=== PATIENT | male | born 1990 | race Caucasian/White ===

== ENCOUNTER 2017-08-14 14:52 | Emergency (ER) | payer SELFPAY ==
[2017-08-14 14:57] VITALS: BP 137/79; PULSE 79; TEMP 97.4; BMI 25.0
--- NOTE | 2017-08-14 14:57 | PDOC ---
Rapid Medical Evaluation Time Seen by Provider: 08/14/17 14:54 Medical Evaluation: Allergies Allergy/AdvReac Type Severity Reaction Status Date / Time morphine Allergy Itching Verified 03/01/15 12:58 08/14/17 14:55 I have performed a brief in-person evaluation of this patient. The patient presents with a chief complaint of: few days of "gum pain", "was supposed to get a wisdom tooth out but I don't have a dentist", pain to R upper molar Pertinent physical exam findings: no abscess appreciated I have ordered the following: nothing The patient will proceed to the ED for further evaluation. Discharge Disposition - Diagnosis Dental implant pain - Referrals - Patient Instructions - Post Discharge Activity
--- NOTE | 2017-08-14 15:46 | PDOC ---
History of Present Illness - General Chief Complaint: Toothache Stated Complaint: TOOTHACHE, HEADACHE Time Seen by Provider: 08/14/17 14:54 History Source: Patient Exam Limitations: No Limitations - History of Present Illness Initial Comments: 08/14/17 15:42 Toothache x 2 days, decscribes pain as achy without exacerbating or relieving factors. Toothache on R side upper and lower. Recent L upper and lower molar extraction. Past History - Past Medical History Allergies/Adverse Reactions: Allergies Allergy/AdvReac Type Severity Reaction Status Date / Time morphine Allergy Itching Verified 08/14/17 14:58 Home Medications: Ambulatory Orders Amoxicillin - [Amoxicillin 500mg Capsule -] 500 mg PO DAILY #30 capsule Ibuprofen [Motrin -] 600 mg PO TID #21 tablet 08/14/17 - Surgical History Appendectomy: Yes - Suicide/Smoking/Psychosocial Hx Smoking Status: Yes Smoking History: Current every day smoker Have you smoked in the past 12 months: Yes Number of Cigarettes Smoked Daily: 5 Information on smoking cessation initiated: Yes 'Breaking Loose' booklet given: 07/20/14 Hx Alcohol Use: No Drug/Substance Use Hx: No *Physical Exam - Vital Signs Last Vital Signs Temp Pulse Resp BP Pulse Ox 97.4 F L 79 16 137/79 100 08/14/17 14:55 08/14/17 14:55 08/14/17 14:55 08/14/17 14:55 08/14/17 14:55 - Physical Exam Comments: 08/14/17 15:45 Uvula midline, no injection, no abscess seen, no cervical adenopathy General Appearance: Yes: Nourished, Appropriately Dressed HEENT: positive: Normal Voice Neck: positive: Trachea midline, Supple Respiratory/Chest: positive: Lungs Clear, Normal Breath Sounds Cardiovascular: positive: S1, S2 Gastrointestinal/Abdominal: positive: Soft *DC/Admit/Observation/Transfer Diagnosis at time of Disposition: Dental implant pain Qualifiers: Encounter type: initial encounter Qualified Code(s): T85.848A - Pain due to other internal prosthetic devices, implants and grafts, initial encounter - Discharge Dispostion Disposition: HOME Condition at time of disposition: Stable - Prescriptions Prescriptions: Amoxicillin - [Amoxicillin 500mg Capsule -] 500 mg PO DAILY #30 capsule Ibuprofen [Motrin -] 600 mg PO TID #21 tablet - Referrals Referrals: Vince Mclaughlin DDS [Staff Physician] - - Patient Instructions Printed Discharge Instructions: DI for Dental Pain - Post Discharge Activity
[2017-08-14] MEDS ORDERED: AMOXICILLIN 500 MG CAPSULE (FP) PO ONE (15:52)
[2017-08-14] MEDS ORDERED: IBUPROFEN 400 MG TABLET (FP) PO ONE ×2 (15:52→15:53)
[2017-08-14] MEDS ORDERED: AMOXICILLIN 250 MG CAPSULE ONE (15:55)
== END 2017-08-14 15:56 | disposition home or self-care (01) ==
LOC: JERFT 14:52
DX: M27.69 Other endosseous dental implant failure (principal)
CPT/HCPCS: 99281-25

== ENCOUNTER 2022-04-23 14:33 | Emergency (ER) | payer OTHER ==
[2022-04-23 15:04] VITALS: BP 115/77; PULSE 82; RESP 20; TEMP 98.4; BMI 27.3
[2022-04-23] MEDS ORDERED: LORazepam 1 MG TABLET PO ONE (17:14)
[2022-04-23] MEDS ORDERED: LACTATED RINGERS SOLUTION 1000 ML INFUS.BAG IV ONE (17:17)
[2022-04-23] MEDS ORDERED: LORazepam 1 MG TABLET ONE (17:38)
[2022-04-23 17:57] LABS: BASO % 0.3 % (0-2.0); EOS % 0.3 % (0-4.5); HEMATOCRIT 46.9 % (35.4-49); HEMOGLOBIN 15.5 GM/dL (11.7-16.9); LYMPH % 25.7 % (8-40); MCH 29.3 pg (25.7-33.7); MCHC 33.1 g/dl (32.0-35.9); MEAN CELL VOLUME 88.4 fl (80-96); MEAN PLT VOLUME 9.1 fl (7.5-11.1); NEUT % 61.7 % (42.8-82.8); PLATELET COUNT 259 10^3/uL (134-434); RDW 13.2 % (11.9-15.9); WHITE BLOOD COUNT 8.7 K/mm3 (4.0-10.0)
[2022-04-23 17:59] LABS: EPI CELLS 13 /uL (0-25.1); HYALINE CASTS 2 /uL (0-3.1); URINE APPEARANCE CLEAR; URINE BACTERIA 6 /uL (0-1359); URINE BILIRUBIN NEGATIVE (NEGATIVE); URINE COLOR YELLOW; URINE GLUCOSE (UA) NEGATIVE (NEGATIVE); URINE KETONE 1+ (NEGATIVE); URINE LEUK ESTERASE NEGATIVE (NEGATIVE); URINE NITRITE NEGATIVE (NEGATIVE); URINE PROTEIN 1+ (NEGATIVE); URINE WBC 16 /uL (0-25.8)
[2022-04-23 18:19] LABS: CHLORIDE 105 mmol/L (98-107)
[2022-04-23 19:22] LABS: ALBUMIN 4.2 g/dl (3.4-5.0); ALK PHOS 57 U/L (45-117); ANION GAP 12 MMOL/L (8-16); BILIRUBIN,TOTAL 0.8 mg/dL (0.2-1); BLOOD UREA NITROGEN 18.5 mg/dL (7-18); CALCIUM 9.3 mg/dL (8.5-10.1); CO2 22 mmol/L (21-32); CREATININE 0.9 mg/dL (0.55-1.3); GLUCOSE,RANDOM 125 mg/dL (74-106); MAGNESIUM 2.4 mg/dL (1.8-2.4); PHOSPHOROUS 3.3 mg/dL (2.5-4.9); SGOT/AST 24 U/L (15-37); SGPT/ALT 25 U/L (13-61); SODIUM 139 mmol/L (136-145); TOT PROT 7.9 g/dl (6.4-8.2)
[2022-04-23] MEDS ORDERED: SODIUM CHLORIDE 1,000 ML IV STA (19:57)
[2022-04-23] MEDS ORDERED: LORazepam 2 MG/ML SDV VIAL IVPUSH ONE (19:59)
[2022-04-23] MEDS ORDERED: hydrOXYzine PAMOATE 25 MG CAPSULE (FP) PO ONE ×2 (22:48→22:49)
== END 2022-04-23 23:09 | disposition home or self-care (01) ==
LOC: JER 14:33
DX: R74.8 Abnormal levels of other serum enzymes (principal)
CPT/HCPCS: 36415; 71046-TC-FY; 80053; 80307; 81003; 82550; 82553; 83735; 84100; 84443; 84484; 85025; 87086; 93005; 93010; 99284-25

== ENCOUNTER 2023-11-12 12:32 | Emergency (ER) | payer OTHER ==
[2023-11-12 12:38] VITALS: BP 124/78; PULSE 104; RESP 20; TEMP 99; BMI 25.8
[2023-11-12] MEDS ORDERED: IBUPROFEN 400 MG TABLET (FP) PO ONE (14:05)
[2023-11-12] MEDS ORDERED: guaiFENesin/D-METHORPHAN HB 10 ML UNIT-DOSE CUPS ONE (14:05)
[2023-11-12] MEDS: IBUPROFEN 400 MG TABLET (FP) PO ONE (14:09)
[2023-11-12] MEDS: guaiFENesin/D-METHORPHAN HB 10 ML UNIT-DOSE CUPS PO ONE (14:09)
[2023-11-12 14:46] LABS: THROAT:GRP A STREP NOT DETECTED (NOTDETECTED)
== END 2023-11-12 15:36 | disposition home or self-care (01) ==
LOC: JERFT 12:32
DX: R09.81 Nasal congestion (principal); J02.9 Acute pharyngitis, unspecified; R05.9 Cough, unspecified; R06.02 Shortness of breath; M79.10 Myalgia, unspecified site; R51.9 Headache, unspecified; R50.9 Fever, unspecified; J06.9 Acute upper respiratory infection, unspecified; Z20.822 Contact with and (suspected) exposure to COVID-19
CPT/HCPCS: 0241U-QW; 71046-TC-FY; 87651; 99284-25